=== PATIENT | male | born 1970 | race African-American/Black ===

== ENCOUNTER 2018-02-09 14:53 | Emergency (ER) | payer SELFPAY ==
[2018-02-09 15:25] LABS: #Lymphocytes 1.2 thou/uL (1.20-3.40); #Monocytes 0.4 thou/uL (0.11-0.59); #Neutrophils 2.4 thou/uL (1.40-6.50); %Basophils 0.4 % (0.0-1.0); %Eosinophils 0.8 % (0.0-10.0); %Lymphocytes 29.2 % (21.0-51.0); %Neutrophils 59.6 % (42.0-75.0); Hemoglobin 14.3 g/dL (14.0-18.0); Mean Corpuscular HGB CONC 34.9 g/dL (32.0-36.0); Mean Corpuscular Hemoglobin 32.3 pg (27.0-31.0); Mean Corpuscular Volume 92.6 fl (80.0-94.0); Platelet Count 266 thou/uL (130-400); RBC Distribution Width 11.8 % (11.5-14.5); Red Blood Cell (RBC) Count 4.42 mill/uL (4.70-6.10); White Blood Cell (WBC) Count 3.9 thou/uL (4.8-10.8)
[2018-02-09 15:47] LABS: ALT (SGPT) 71 U/L (8-55); AST (SGOT) 53 U/L (5-34); Albumin 4.4 g/dL (3.5-5.0); Alkaline Phosphatase 84 U/L (40-150); Anion Gap 10 mmol/L (10-20); BUN (Urea Nitrogen) 10 mg/dL (8.9-20.6); Bilirubin, Total 1.1 mg/dL (0.2-1.2); Calc. Creatinine Clearance 0 mL/min (70-130); Calcium 9.7 mg/dL (7.8-10.44); Carbon Dioxide 29 mmol/L (22-29); Chloride 103 mmol/L (98-107); Estimated GFR-MDRD Greater than 90; Globulin 3.9 g/dL (2.4-3.5); Glucose 110 mg/dL (70-105); Potassium 3.1 mmol/L (3.5-5.1); Protein, Total 8.3 g/dL (6.0-8.3); Sodium 139 mmol/L (136-145)
[2018-02-09 15:55] LABS: INR-International Normal Ratio 1.2; Prothrombin Time 15.1 SEC (12.0-14.7)
[2018-02-09 16:02] LABS: CKMB 3.7 ng/mL (0-6.6); Troponin I Less than 0.010 ng/mL (< 0.028)
[2018-02-09] MEDS ORDERED: Potassium Chloride 20 MEQ TAB ONE (16:15)
--- NOTE | 2018-02-09 16:23 | CT ---
CT BRAIN WITHOUT CONTRAST: 02/09/18 HISTORY: Vertigo. FINDINGS: No evidence of infarct, hemorrhage, midline shift, or abnormal extra-axial fluid collections seen. Th e ventricular size is normal and the basilar cisterns patent. The bony calvarium is intact. There is mucosal disease in the left posterior ethmoid air cells. IMPRESSION: No CT evidence of acute intracranial process. POS: OFF
--- NOTE | 2018-02-09 16:25 | RAD ---
CHEST ONE VIEW: 02/09/18 HISTORY: 47-year-old male with history of lightheadedness for one hour. Heart size is normal. The lungs are clear. IMPRESSION: No acute intrathoracic disease. POS: [facility]
--- NOTE | 2018-02-12 11:57 | EKG ---
Test Reason : Blood Pressure : / mmHG Vent. Rate : 073 BPM Atrial Rate : 073 BPM P-R Int : 172 ms QRS Dur : 084 ms QT Int : 386 ms P-R-T Axes : 038 024 016 degrees QTc Int : 425 ms Normal sinus rhythm Normal ECG Confirmed by BROOKE RAYMUNDO M.D. ([id number]), movie editor CURTIS MONTERO ([id number]) on 02/12/2018 11:56:14 AM Referred By: Confirmed By:BROOKE RAYMUNDO M.D.
== END 2018-02-09 18:35 | disposition home or self-care (01) ==
LOC: ERS 14:53
DX: E87.6 Hypokalemia (principal); R94.5 Abnormal results of liver function studies; I10 Essential (primary) hypertension; F32.9 Major depressive disorder, single episode, unspecified; Z85.51 Personal history of malignant neoplasm of bladder; Z71.6 Tobacco abuse counseling
CPT/HCPCS: 36416; 70450; 71045; 80053; 82553; 83735; 84484; 85025; 85610; 93005; 96360; 99406

== ENCOUNTER 2022-11-22 19:46 | Inpatient (IN) | payer SELFPAY ==
[2022-11-22] MEDS ORDERED: Ketorolac Tromethamine 30 MG/ML VIAL ONE (19:59)
[2022-11-22] MEDS ORDERED: Fentanyl 100 MCG/2 ML VIAL ONE ×2 (20:07→20:47)
[2022-11-22] MEDS ORDERED: Morphine 4 MG/ML VIAL ONE (21:17)
[2022-11-22] MEDS ORDERED: Ketamine 50 MG/ML (10ML VIAL) ONE (21:17)
[2022-11-22 21:19] LABS: INR-International Normal Ratio 1.2; PTT 26.5 sec (22.9-36.1); Prothrombin Time 15.7 sec (12.0-14.7)
[2022-11-22 21:21] LABS: #Eosinphils 0.1 thou/uL (0.0-0.7); #Lymphocytes 1.2 thou/uL (1.20-3.40); #Monocytes 0.4 thou/uL (0.11-0.59); #Neutrophils 3.5 thou/uL (1.40-6.50); %Basophils 0.5 % (0.0-1.0); %Eosinophils 2.4 % (0.0-10.0); %Lymphocytes 22.3 % (21.0-51.0); %Monocytes 7.8 % (0.0-10.0); Hemoglobin 12.7 g/dL (14.0-18.0); Mean Corpuscular HGB CONC 36.3 g/dL (32.0-36.0); Mean Corpuscular Hemoglobin 32.8 pg (27.0-31.0); Mean Corpuscular Volume 90.2 fl (78.0-98.0); Mean Platelet Volume 7.5 fL (7.4-10.4); Platelet Count 235 10x3/uL (130-400); RBC Distribution Width 11.3 % (11.5-14.5); Red Blood Cell (RBC) Count 3.89 mill/uL (4.70-6.10); White Blood Cell (WBC) Count 5.2 10x3/uL (4.8-10.8)
[2022-11-22 21:29] LABS: ALT (SGPT) 35 U/L (8-55); AST (SGOT) 31 U/L (5-34); Albumin 3.8 g/dL (3.5-5.0); Alkaline Phosphatase 61 U/L (40-110); Anion Gap 11 mmol/L (10-20); BUN (Urea Nitrogen) 13 mg/dL (8.4-25.7); Bilirubin, Total 0.9 mg/dL (0.2-1.2); Calc. Creatinine Clearance 0 mL/min (70-130); Calcium 8.3 mg/dL (7.8-10.44); Carbon Dioxide 25 mmol/L (22-29); Chloride 107 mmol/L (98-107); Estimated GFR 104; Globulin 3.1 g/dL (2.4-3.5); Glucose 91 mg/dL (70-105); Potassium 3.4 mmol/L (3.5-5.1); Protein, Total 6.9 g/dL (6.0-8.3); Sodium 140 mmol/L (136-145)
[2022-11-22] MEDS ORDERED: PROPOFOL 20 ML ONE (21:40)
[2022-11-22] MEDS ORDERED: Dextrose 50% Abboject 50 ML SYRINGE SLOW IVP PRN (22:53)
[2022-11-22] MEDS ORDERED: Dextrose 5% in Water 1,000 ML IV PRN (22:53)
[2022-11-22] MEDS ORDERED: Ondansetron PF 4 MG/2 ML Vial IVP PRN (22:53)
[2022-11-22] MEDS ORDERED: hydrALAZINE 20 MG/ML VIAL SLOW IVP PRN (22:53)
[2022-11-22] MEDS ORDERED: diphenhydrAMINE 25 MG CAP PO PRN (22:55)
[2022-11-22] MEDS ORDERED: diphenhydrAMINE 50 MG/ML VIAL IM PRN (22:55)
[2022-11-22] MEDS ORDERED: diphenhydrAMINE 50 MG/ML VIAL IVP PRN (22:55)
[2022-11-22] MEDS ORDERED: HYDROmorphone 10 mg/100 ml CADD IVPB PRN (22:55)
[2022-11-22] MEDS ORDERED: Promethazine HCl 25 MG/ML VIAL IM PRN (22:55)
[2022-11-22] MEDS ORDERED: Naloxone HCl 0.4 mg/ml Vial IV PRN (22:55)
[2022-11-22] MEDS ORDERED: Sodium Chloride 0.9% 1,000 ML IV SCH (23:00)
[2022-11-22] MEDS ORDERED: Communication Order-Pharmacy FS SCH (23:00)
[2022-11-22 23:01] LABS: Magnesium 1.9 mg/dL (1.6-2.6); Phosphorus 2.4 mg/dL (2.3-4.7)
[2022-11-22] MEDS ORDERED: Potassium Phosphate 30 MMOL in Sodium Chloride 0.9% 250 ML 250 ML IVPB SCH (23:45)
[2022-11-23 00:13] VITALS: BMI 31.0
[2022-11-23] MEDS: Acetaminophen 500 MG TAB PO SCH ×5 (00:23→23:23)
[2022-11-23] MEDS: Ketorolac Tromethamine 30 MG/ML VIAL IVP SCH ×5 (00:30→23:20)
[2022-11-23 06:22] LABS: #Eosinphils 0.1 thou/uL (0.0-0.7); #Lymphocytes 1.4 thou/uL (1.20-3.40); #Monocytes 0.4 thou/uL (0.11-0.59); #Neutrophils 3.9 thou/uL (1.40-6.50); %Basophils 0.5 % (0.0-1.0); %Lymphocytes 23.6 % (21.0-51.0); %Monocytes 7.5 % (0.0-10.0); %Neutrophils 66.3 % (42.0-75.0); Hemoglobin 12.1 g/dL (14.0-18.0); Mean Corpuscular HGB CONC 34.3 g/dL (32.0-36.0); Mean Corpuscular Hemoglobin 31.3 pg (27.0-31.0); Mean Corpuscular Volume 91.4 fl (78.0-98.0); Mean Platelet Volume 7.5 fL (7.4-10.4); Platelet Count 235 10x3/uL (130-400); RBC Distribution Width 11.4 % (11.5-14.5); Red Blood Cell (RBC) Count 3.86 mill/uL (4.70-6.10); White Blood Cell (WBC) Count 5.8 10x3/uL (4.8-10.8)
[2022-11-23 06:38] LABS: Anion Gap 10 mmol/L (10-20); BUN (Urea Nitrogen) 11 mg/dL (8.4-25.7); Calc. Creatinine Clearance 170 mL/min (70-130); Calcium 8.5 mg/dL (7.8-10.44); Carbon Dioxide 25 mmol/L (22-29); Chloride 107 mmol/L (98-107); Estimated GFR 106; Glucose 82 mg/dL (70-105); Magnesium 2.1 mg/dL (1.6-2.6); Phosphorus 4.3 mg/dL (2.3-4.7); Potassium 3.3 mmol/L (3.5-5.1); Sodium 139 mmol/L (136-145)
[2022-11-23] MEDS ORDERED: CEFAZOLIN 2 GM in Sodium Chloride 0.9% 100 ML IVPB SCH (08:00)
[2022-11-23] MEDS ORDERED: Potassium Chloride 40 MEQ in Premix Bag 1 BAG IVPB SCH (09:00)
[2022-11-23] MEDS: Senokot S 8.6-50 MG TAB PO SCH ×2 (09:29→20:27)
[2022-11-23] MEDS: Gabapentin 300 MG CAP PO SCH ×3 (09:29→20:26)
[2022-11-23] MEDS: Famotidine 20 MG TAB PO SCH ×2 (09:29→20:26)
[2022-11-23] MEDS: Polyethylene Glycol 3350 17 GM Packet PO SCH (09:29)
[2022-11-23] MEDS ORDERED: Fentanyl 250 MCG/5 ML VIAL ONE (11:15)
[2022-11-23] MEDS ORDERED: CEFAZOLIN 2 GM VIAL ONE (11:21)
[2022-11-23] MEDS ORDERED: Sodium Chloride 0.9% 100 ML ONE (11:21)
[2022-11-23] MEDS ORDERED: Dexamethasone 20 MG/5 ML VIAL ONE (11:31)
[2022-11-23] MEDS ORDERED: Glycopyrrolate 0.2 MG/ML 5 ML SYRINGE ONE (11:31)
[2022-11-23] MEDS ORDERED: Ketorolac Tromethamine 30 MG/ML VIAL ONE (11:31)
[2022-11-23] MEDS ORDERED: PHENYLEPHRINE-NS 100 MCG/ML 10 ML SYRINGE ONE (11:31)
[2022-11-23] MEDS ORDERED: PROPOFOL 200 MG/20 ML VIAL ONE (11:31)
[2022-11-23] MEDS ORDERED: ePHEDrine 50 MG/ML VIAL ONE (11:31)
[2022-11-23] MEDS ORDERED: Ondansetron PF 4 MG/2 ML Vial ONE (11:31)
[2022-11-23] MEDS ORDERED: ePHEDrine Sulfate 50 MG/10 ML VIAL ONE (13:12)
[2022-11-23] MEDS ORDERED: Promethazine HCl 25 MG/ML VIAL IM PRN (13:52)
[2022-11-23] MEDS ORDERED: Ondansetron HCl/PF 4 MG/2 ML Vial IVP PRN (13:52)
[2022-11-23] MEDS ORDERED: Promethazine HCl 25 MG/ML VIAL IVPB PRN (13:52)
[2022-11-23] MEDS ORDERED: Fentanyl 100 MCG/2 ML VIAL ONE (14:13)
[2022-11-23] MEDS ORDERED: Ipratropium Bromide 2.5 ml Neb ONE (19:32)
[2022-11-23] MEDS: CEFAZOLIN 2 GM in Sodium Chloride 0.9% 100 ML IVPB SCH (20:27)
[2022-11-24] MEDS: CEFAZOLIN 2 GM in Sodium Chloride 0.9% 100 ML IVPB SCH ×2 (02:18→12:17)
[2022-11-24] MEDS: Ketorolac Tromethamine 30 MG/ML VIAL IVP SCH (04:44)
[2022-11-24] MEDS: Acetaminophen 500 MG TAB PO SCH ×4 (04:45→23:54)
[2022-11-24 06:12] LABS: #Lymphocytes 0.8 thou/uL (1.20-3.40); #Monocytes 0.6 thou/uL (0.11-0.59); #Neutrophils 5.4 thou/uL (1.40-6.50); %Basophils 0.1 % (0.0-1.0); %Eosinophils 0.1 % (0.0-10.0); %Lymphocytes 11.8 % (21.0-51.0); %Monocytes 8.2 % (0.0-10.0); %Neutrophils 79.7 % (42.0-75.0); Hemoglobin 10.3 g/dL (14.0-18.0); Mean Corpuscular HGB CONC 34.6 g/dL (32.0-36.0); Mean Corpuscular Hemoglobin 31.7 pg (27.0-31.0); Mean Corpuscular Volume 91.5 fl (78.0-98.0); Mean Platelet Volume 7.6 fL (7.4-10.4); Platelet Count 226 10x3/uL (130-400); RBC Distribution Width 11.4 % (11.5-14.5); Red Blood Cell (RBC) Count 3.27 mill/uL (4.70-6.10); White Blood Cell (WBC) Count 6.7 10x3/uL (4.8-10.8)
[2022-11-24 06:28] LABS: Anion Gap 10 mmol/L (10-20); BUN (Urea Nitrogen) 15 mg/dL (8.4-25.7); Calc. Creatinine Clearance 183 mL/min (70-130); Calcium 8.5 mg/dL (7.8-10.44); Carbon Dioxide 25 mmol/L (22-29); Chloride 108 mmol/L (98-107); Estimated GFR 109; Glucose 126 mg/dL (70-105); Magnesium 1.8 mg/dL (1.6-2.6); Phosphorus 2.7 mg/dL (2.3-4.7); Potassium 3.9 mmol/L (3.5-5.1); Sodium 139 mmol/L (136-145)
[2022-11-24] MEDS ORDERED: Ketorolac Tromethamine 30 MG/ML VIAL IVP SCH (08:30)
[2022-11-24] MEDS: Enoxaparin Sodium 40 MG/0.4 ML SYRINGE SC SCH ×2 (09:09→21:11)
[2022-11-24] MEDS: traMADol HCl 50 MG TAB PO SCH ×3 (09:09→21:10)
[2022-11-24] MEDS: Gabapentin 300 MG CAP PO SCH ×3 (09:10→21:10)
[2022-11-24] MEDS: Senokot S 8.6-50 MG TAB PO SCH ×2 (09:10→21:11)
[2022-11-24] MEDS: Famotidine 20 MG TAB PO SCH ×2 (09:10→21:10)
[2022-11-24] MEDS: Polyethylene Glycol 3350 17 GM Packet PO SCH (09:59)
[2022-11-24] MEDS ORDERED: Albuterol Sulfate 2.5 mg/0.5 ml Neb ONE (14:07)
[2022-11-24] MEDS: Cyclobenzaprine 10 MG TAB PO PRN (21:10)
[2022-11-24] MEDS ORDERED: Acetaminophen/Codeine 30-300mg Tablet PO SCH (23:59)
[2022-11-25] MEDS ORDERED: Acetaminophen/Codeine 30-300mg Tablet PO SCH (00:15)
[2022-11-25] MEDS: Acetaminophen 325 MG TAB PO SCH ×2 (00:17→05:27)
[2022-11-25] MEDS: Acetaminophen/Codeine 30-300mg Tablet PO SCH ×4 (05:28→23:31)
[2022-11-25 06:37] LABS: Hemoglobin 10.3 g/dL (14.0-18.0); Mean Corpuscular Hemoglobin 32.2 pg (27.0-31.0); Mean Corpuscular Volume 92.1 fl (78.0-98.0); Mean Platelet Volume 7.6 fL (7.4-10.4); Platelet Count 235 10x3/uL (130-400); RBC Distribution Width 11.6 % (11.5-14.5); White Blood Cell (WBC) Count 6.5 10x3/uL (4.8-10.8)
[2022-11-25] MEDS ORDERED: Ibuprofen 200 MG TAB PO PRN (08:13)
[2022-11-25] MEDS: Enoxaparin Sodium 40 MG/0.4 ML SYRINGE SC SCH ×2 (08:14→22:01)
[2022-11-25] MEDS: Famotidine 20 MG TAB PO SCH ×2 (08:14→22:01)
[2022-11-25] MEDS: Gabapentin 300 MG CAP PO SCH ×3 (08:14→22:00)
[2022-11-25] MEDS: Senokot S 8.6-50 MG TAB PO SCH ×2 (08:15→22:00)
[2022-11-25] MEDS: Polyethylene Glycol 3350 17 GM Packet PO SCH (08:15)
[2022-11-25] MEDS ORDERED: traMADol HCl 50 MG TAB PO PRN (09:08)
[2022-11-25 09:52] LABS: Band 7 % (5-11); Eosinophils 4 % (0-10); Lymphocytes 26 % (21-51); MDiff Complete? YES; Monocytes 2 % (0-10); Neutrophil 60 % (42-75); RBC Morphology Normal; Reactive Lymphocytes 1 % (0-10)
[2022-11-25] MEDS: traMADol HCl 50 MG TAB PO SCH ×3 (10:59→23:32)
[2022-11-25] MEDS: Cyclobenzaprine 10 MG TAB PO PRN ×2 (14:40→22:04)
[2022-11-26] MEDS: Ibuprofen 200 MG TAB PO SCH ×2 (01:43→08:23)
[2022-11-26] MEDS: Acetaminophen/Codeine 30-300mg Tablet PO SCH ×2 (05:21→12:29)
[2022-11-26] MEDS: traMADol HCl 50 MG TAB PO SCH ×3 (05:22→14:27)
[2022-11-26] MEDS: Gabapentin 300 MG CAP PO SCH ×2 (08:22→14:26)
[2022-11-26] MEDS: Enoxaparin Sodium 40 MG/0.4 ML SYRINGE SC SCH (08:22)
[2022-11-26] MEDS: Famotidine 20 MG TAB PO SCH (08:23)
[2022-11-26] MEDS: Polyethylene Glycol 3350 17 GM Packet PO SCH (08:24)
[2022-11-26] MEDS: Senokot S 8.6-50 MG TAB PO SCH (08:24)
[2022-11-26 12:42] VITALS: BP 108/63; TEMP 98
== END 2022-11-26 16:00 | disposition home or self-care (01) | DRG 482 ==
LOC: ERS 19:46 → SURG A 22:53
PROVIDERS: ADMIT Surgery; ATTEND Surgery
PROC: 2W3MX1Z Immobilization of Left Lower Extremity using Splint (ICD-10-PCS; 2022-11-22)
PROC: 0QS706Z Reposition Left Upper Femur with Intramedullary Internal Fixation Device, Open Approach (ICD-10-PCS; principal; 2022-11-23)
DX: S72.22XA Displaced subtrochanteric fracture of left femur, initial encounter for closed fracture (principal); S72.392A Other fracture of shaft of left femur, initial encounter for closed fracture; S72.402A Unspecified fracture of lower end of left femur, initial encounter for closed fracture; Z20.822 Contact with and (suspected) exposure to COVID-19; E87.6 Hypokalemia; I10 Essential (primary) hypertension; F32.A Depression, unspecified; Z60.2 Problems related to living alone; W18.30XA Fall on same level, unspecified, initial encounter; Y93.89 Activity, other specified; Z85.51 Personal history of malignant neoplasm of bladder
CPT/HCPCS: 27502; 36415; 71045; 80048; 80053; 83735; 84100; 85025; 85520; 85610; 85730; 86850; 86900; 86901; 96374; 96375; 96376; 99152; 99153; C1713; G0390; J1100; J1650; J1885; J2270; J2405; J2704; J3010; J3480; J3490; J7050; J7611; J7620; U0003; U0005